=== PATIENT | male | born 1970 ===

== ENCOUNTER → 2025-10-12 02:40 | Outpatient (CLI) | payer BC, SELFPAY ==
--- NOTE | 2025-10-12 | DI.RAD_ITS ---
Exam(s) XR ABDOMEN FLAT UPRIGHT EXAM: 2D digital imaging was performed. CLINICAL HISTORY: BILAT LEG EDEMA,ABNL WT GAIN,R63.5,R60.0,ABD DISTENSION,R14.0. COMPARISON: No exams were available for comparison TECHNIQUE: Supine and upright views of the abdomen were performed. FINDINGS: BOWEL GAS PATTERN: Nondistended.No free air. CALCIFICATIONS: No urinary tract calcifications. OSSEOUS STRUCTURES: Normal for age. Visualized portions of chest: Unremarkable. Soft tissues: Unremarkable. No evidence of organomegaly. IMPRESSION: 1. Nonobstructive bowel gas pattern. 2. No radiopaque calculi. 3. No free air. DATA REPOSITORY: RADIATION DOSE DELIVERED:
== END ==
PROVIDERS: PCP Family Medicine; Visit Provider Family Medicine
DX: R60.0 Localized edema (principal); R63.5 Abnormal weight gain; R14.0 Abdominal distension (gaseous)
CPT/HCPCS: 74019